=== PATIENT | male | born 1970 | race Caucasian/White ===

== ENCOUNTER 2017-03-27 10:11 | Emergency (ER) | payer OTHER ==
[~2017-03-27] VITALS: Ht 177.8 cm; Wt 90.7 kg
[~2017-03-27 10:11] MED LIST: FLOMAX0.4 MG PO; HYDROCODONE BIT1 T11 PO; TENORMIN25 M1 PO; ZOFRAN ODT4 MG SL
[2017-03-27] MEDS ORDERED: NAPROSYN500 MG PO (10:31)
[2017-03-27] MEDS ORDERED: KEFLEX500 M1 PO (10:31)
== END 2017-03-27 11:45 | disposition home or self-care (01) ==
LOC: ED 10:11
DX: S61.214A Laceration without foreign body of right ring finger without damage to nail, initial encounter (principal); R03.0 Elevated blood-pressure reading, without diagnosis of hypertension; F10.10 Alcohol abuse, uncomplicated; Z79.899 Other long term (current) drug therapy; W45.8XXA Other foreign body or object entering through skin, initial encounter; Y93.89 Activity, other specified; Y92.89 Other specified places as the place of occurrence of the external cause; Y99.8 Other external cause status

== ENCOUNTER 2020-01-27 08:02 | Emergency (ER) | payer OTHER ==
[~2020-01-27] VITALS: Ht 177.8 cm; Wt 95.3 kg
[~2020-01-27 08:02] MED LIST changes: +KEFLEX500 M1 PO; +NAPROSYN500 MG PO
[2020-01-27] MEDS ORDERED: Motrin,Rufen800 MG PO (10:01)
== END 2020-01-27 10:12 | disposition home or self-care (01) ==
LOC: ED 08:02
DX: S16.1XXA Strain of muscle, fascia and tendon at neck level, initial encounter (principal); Z79.899 Other long term (current) drug therapy; V89.2XXA Person injured in unspecified motor-vehicle accident, traffic, initial encounter; Y93.89 Activity, other specified; Y92.89 Other specified places as the place of occurrence of the external cause; Y99.8 Other external cause status

== ENCOUNTER 2024-06-06 21:14 | Emergency (ER) | payer SELFPAY ==
[~2024-06-06] VITALS: Ht 177.8 cm; Wt 90.7 kg
[~2024-06-06 21:14] MED LIST changes: +Motrin,Rufen800 MG PO
[2024-06-06 22:01] LABS: URINE AMPHETAMINES Negative (1000ng/ml); URINE BARBITURATES Negative (200ng/ml); URINE BENZODIAZEPINES Negative (200ng/ml); URINE CANNABINOIDS (THC) Negative (50ng/ml); URINE COCAINE Negative (300ng/ml); URINE METHADONE Negative (300ng/ml); URINE OPIATES Negative (300ng/ml); URINE PHENCYCLIDINE Negative (25ng/ml)
== END 2024-06-06 22:54 | disposition home or self-care (01) ==
LOC: ED 21:14
PROVIDERS: Nurse Practitioner Family
DX: Z13.9 Encounter for screening, unspecified (principal); Z79.899 Other long term (current) drug therapy